=== PATIENT | male | born 1960 | race Caucasian/White ===

== ENCOUNTER 2019-05-02 16:39 | Emergency (ER) | payer MEDICAID ==
[~2019-05-02] VITALS: Ht 177.8 cm; Wt 79.4 kg
[2019-05-02 19:18] LABS: BASOPHILS # (AUTO) 0.1 X10'3 (0-0.2); EOSINOPHILS # (AUTO) 0.2 X10'3 (0-0.9); EOSINOPHILS % (AUTO) 1.8 % (0-6); HEMOGLOBIN 14.5 g/dl (14.0-17.9); LYMPHOCYTES # (AUTO) 2.5 X10'3 (1.1-4.8); LYMPHOCYTES % (AUTO) 20.5 % (21-51); MEAN CORPUSCULAR HEMOGLOBIN 31.7 PG (27.0-31.0); MEAN CORPUSCULAR HGB CONC 33.7 g/dL (33.0-36.5); MEAN CORPUSCULAR VOLUME 94.1 FL (78-98); MEAN PLATELET VOLUME 7.2 FL (7.4-10.4); MONOCYTES # (AUTO) 0.8 X10'3 (0-0.9); MONOCYTES % (AUTO) 6.5 % (2-12); NEUTROPHILS # (AUTO) 8.4 X10'3 (1.8-7.7); NEUTROPHILS % (AUTO) 70.2 % (42-75); PLATELET COUNT 293 X10'3 (140-440); RED BLOOD COUNT 4.57 X10'6 (4.70-6.10); RED CELL DISTRIBUTION WIDTH 13.1 % (11.5-14.5)
[2019-05-02 19:25] LABS: HEMOGLOBIN A1C 11.7 % (4.5-6.2)
[2019-05-02 19:30] LABS: ALANINE AMINOTRANSFERASE 31 U/L (12-78); ALBUMIN 3.2 G/DL (3.4-5.0); ALBUMIN/GLOBULIN RATIO 0.9 (1.1-1.5); ALKALINE PHOSPHATASE 134 IU/L (46-116); ANION GAP 8 (8-16); ASPARTATE AMINO TRANSFERASE 13 U/L (10-37); BILIRUBIN,TOTAL 0.3 MG/DL (0.1-1.0); BLOOD UREA NITROGEN 16 MG/DL (7-18); CALCIUM 8.2 MG/DL (8.5-10.1); CHLORIDE 101 MMOL/L (99-107); CREATININE 0.84 MG/DL (0.60-1.10); GLUCOSE 384 MG/DL (70-104); POTASSIUM 3.8 MMOL/L (3.5-5.1); SODIUM 137 MMOL/L (135-145); TOTAL CARBON DIOXIDE 27.9 MMOL/L (24-32); TOTAL PROTEIN 6.9 G/DL (6.4-8.2); eGFR > 90 ML/MIN
[2019-05-02] MEDS ORDERED: HYDR25TA4 PO (19:36)
[2019-05-02] MEDS ORDERED: METF500T PO (19:36)
[2019-05-02 19:50] VITALS: BP 127/83
== END 2019-05-02 19:52 | disposition home or self-care (01) ==
LOC: ER 16:39
DX: E11.9 Type 2 diabetes mellitus without complications (principal); R06.02 Shortness of breath; R60.0 Localized edema; F17.210 Nicotine dependence, cigarettes, uncomplicated; Z98.890 Other specified postprocedural states; Z79.899 Other long term (current) drug therapy
CPT/HCPCS: 36415; 71045; 80053; 82948; 83036; 83880; 85025; 99284

== ENCOUNTER 2019-05-28 12:53 | Inpatient (IN) | payer MEDICAID ==
[~2019-05-28] VITALS: Ht 177.8 cm; Wt 72.7 kg
[~2019-05-28 12:53] MED LIST: HYDR25TA4 PO; METF500T PO
[2019-05-28 13:40] LABS: BASOPHILS # (AUTO) 0.1 X10'3 (0-0.2)
[2019-05-28 13:45] LABS: PARTIAL THROMBOPLASTIN TIME 33 SECONDS (22-32)
[2019-05-28 13:47] LABS: ALANINE AMINOTRANSFERASE 41 U/L (12-78); ALBUMIN 3.3 G/DL (3.4-5.0); ALBUMIN/GLOBULIN RATIO 0.7 (1.1-1.5); ALKALINE PHOSPHATASE 162 IU/L (46-116); ANION GAP 14 (8-16); ASPARTATE AMINO TRANSFERASE 39 U/L (10-37); BASOPHILS % (AUTO) 0.3 % (0-1); BILIRUBIN,TOTAL 0.8 MG/DL (0.1-1.0); BLOOD UREA NITROGEN 63 MG/DL (7-18); BUN/CREATININE RATIO 24.7 (5.4-32.0); CALCIUM 8.9 MG/DL (8.5-10.1); CHLORIDE 80 MMOL/L (99-107); CREATININE 2.55 MG/DL (0.60-1.10); EOSINOPHILS # (AUTO) 0.1 X10'3 (0-0.9); EOSINOPHILS % (AUTO) 0.6 % (0-6); HEMATOCRIT 52.8 % (42.0-52.0); HEMOGLOBIN 17.7 g/dl (14.0-17.9); LYMPHOCYTES # (AUTO) 0.8 X10'3 (1.1-4.8); LYMPHOCYTES % (AUTO) 4.7 % (21-51); MEAN CORPUSCULAR HGB CONC 33.5 g/dL (33.0-36.5); MEAN CORPUSCULAR VOLUME 95.7 FL (78-98); MEAN PLATELET VOLUME 8.5 FL (7.4-10.4); MONOCYTES # (AUTO) 0.8 X10'3 (0-0.9); MONOCYTES % (AUTO) 4.7 % (2-12); NEUTROPHILS # (AUTO) 14.8 X10'3 (1.8-7.7); NEUTROPHILS % (AUTO) 89.7 % (42-75); PLATELET COUNT 186 X10'3 (140-440); POTASSIUM 5.4 MMOL/L (3.5-5.1); RED BLOOD COUNT 5.52 X10'6 (4.70-6.10); TOTAL CARBON DIOXIDE 19.8 MMOL/L (24-32); WHITE BLOOD COUNT 16.5 X10'3 (4.5-11.0); eGFR 26 ML/MIN
[2019-05-28] MEDS ORDERED: ipratropium/albuterol 3ml nebule NEB ONE (13:55)
[2019-05-28] MEDS ORDERED: normal saline 1000ML IV soln IVB ONE ×2 (13:55→18:20)
[2019-05-28 14:04] LABS: GLUCOSE 892 MG/DL (70-104); SODIUM 114 MMOL/L (135-145)
[2019-05-28 14:10] LABS: D-DIMER 3.34 MG/L FEU (0-0.50)
[2019-05-28 14:20] LABS: TOTAL CELLS COUNTED 100
[2019-05-28 14:24] LABS: PLATELET ESTIMATE NORMAL
--- NOTE | 2019-05-28 14:58 | NUR ---
Pt transported to [facility] with Tech via wheelchair.
--- NOTE | 2019-05-28 15:13 | NUR ---
Pt's girlfriend Lillie can be reached at [phone].
--- NOTE | 2019-05-28 15:55 | NUR ---
pt back from nuc med
[2019-05-28 17:06] LABS: CLARITY,URINE SLIGHTLY CLOUDY (Clear); COLOR,URINE YELLOW (Yellow); GLUCOSE, URINE >=1000 mg/dl (Neg); KETONES,URINE TRACE mg/dl (Neg); LEUKOCYTE ESTERASE ,URINE NEGATIVE (Neg); NITRITES, URINE POSITIVE (Neg); OCCULT BLOOD,URINE LARGE (Neg); PH,URINE 5.5 (4.8-8.0); PROTEIN,URINE TRACE mg/dl (Neg); UROBILINOGEN,URINE 0.2 E.U/dL (0.2-1.0)
--- NOTE | 2019-05-28 17:07 | NUR ---
PT IS ALERT BUT CONFUSED ON WHAT [place] HE [place] AND STARTING TO TALK ABOUT THINGS THAT MAKE NO SINCE
[2019-05-28 17:19] LABS: URINE AMPHETAMINE SCREEN POSITIVE (Neg); URINE BARBITUATE SCREEN NEGATIVE (Neg); URINE BENZODIAZEPINES SCREEN NEGATIVE (Neg); URINE CANNABINOID SCREEN POSITIVE (Neg); URINE COCAINE SCREEN NEGATIVE (Neg); URINE METHADONE SCREEN NEGATIVE (Neg); URINE OPIATE SCREEN POSITIVE (Neg); URINE PHENCYCLIDINE SCREEN NEGATIVE (Neg)
[2019-05-28 17:21] LABS: UA COLLECTION TYPE CLN CATCH MIDSTREAM
[2019-05-28 17:23] LABS: FINE GRANULAR CAST 0-3 /LPF (NEGATIVE); SQUAMOUS EPITHELIAL CELL,UR FEW /LPF (FEW)
[2019-05-28 17:24] LABS: AMORPHOUS URATES 1+
[2019-05-28 17:25] LABS: BACTERIA,URINE 1+ /HPF (Neg); WBC,URINE 0-4 /HPF (0-4)
[2019-05-28 18:00] LABS: ABG BASE EXCESS -11.8 mmol/L (-2.0-3.0); ABG HCO3 13.3 mmol/L (22.0-26.0); ABG OXYGEN SATURATION 96.1 % (95-98); ABG PCO2 (T) 29.3 mmHg (35.0-45.0); ABG PH (T) 7.274 (7.350-7.450); ABG PO2 (T) 78.9 mmHg (83-108); ALLEN'S TEST POSITIVE; FCOHb 1.2 % (0.5-1.5); FMetHb 0.3 % (0.3-1.12); FO2Hb 94.7 % (94-100); TOTAL HEMOGLOBIN 17.1 G/dl (14.0-17.9)
--- NOTE | 2019-05-28 18:41 | NUR ---
pt HR 141. MD notified. New order for ativan 1 mg IV prn for agitation.
[2019-05-28] MEDS ORDERED: LORazepam 2 mg/ml vial IV ONE (18:45)
--- NOTE | 2019-05-28 19:28 | NUR ---
Powers catheter placed in patient as ordered; patent and draining clear yellow urine. Pt somewhat confused but cooperative.
[2019-05-28] MEDS ORDERED: sodium bicarbonate (8.4%) inj. 50 MEQ in sodium chloride 0.45% 950 ML IV SCH (19:42)
[2019-05-28] MEDS ORDERED: MESSAGE TO PHARMACY PO ONE (19:45)
[2019-05-28] MEDS ORDERED: diphenhydrAMINE 25mg capsule PO PRN (19:45)
[2019-05-28] MEDS ORDERED: diphenhydrAMINE 50 mg/ml inj IV PRN (19:45)
[2019-05-28] MEDS ORDERED: HYDROcodone/acetaminophen 5mg/325mg tablet PO PRN (19:45)
[2019-05-28] MEDS ORDERED: bisacodyl 10mg suppository rectal RC PRN (19:45)
[2019-05-28] MEDS ORDERED: dextrose ORAL solution 15 GM/59 ML bottle PO PRN ×2 (19:45)
[2019-05-28] MEDS ORDERED: magnesium Cl slow-release 64mg tablet PO PRN (19:45)
[2019-05-28] MEDS ORDERED: HYDROcodone/acetaminophen 10/325mg tab PO PRN (19:45)
[2019-05-28] MEDS ORDERED: potassium Cl 20 mEq SR tablet PO PRN ×4 (19:45→21:30)
[2019-05-28] MEDS ORDERED: glucagon, human recombinant 1mg kit SUBCUT PRN (19:45)
[2019-05-28] MEDS ORDERED: ondansetron/PF 4mg/2ml inj IV PRN (19:45)
[2019-05-28] MEDS ORDERED: insulin Lispro (HumaLOG) vial - multi-dose SQ SCH (19:45)
[2019-05-28] MEDS ORDERED: mag hydrox/Alum hydrox/simeth 30ml oral suspension PO PRN (19:45)
[2019-05-28] MEDS ORDERED: magnesium 2GM in 50ml NS 50 ML IV PRN (19:45)
[2019-05-28] MEDS ORDERED: acetaminophen 325mg tablet PO PRN ×2 (19:45)
[2019-05-28] MEDS ORDERED: magnesium 4gm in 100ml NS 100 ML IV PRN (19:45)
[2019-05-28] MEDS ORDERED: dextrose 50%-water 50ml dispensing syringe IV PRN ×2 (19:45)
[2019-05-28] MEDS ORDERED: CefTRIAXone/D5W-Rocephin 1gm 50 ML IV SCH (19:45)
[2019-05-28] MEDS ORDERED: magnesium hydroxide 30ml (MOM) UD suspension PO PRN (19:45)
[2019-05-28] MEDS ORDERED: potassium CL 10mEq/100ml bag 100 ML IV PRN ×4 (19:45→21:30)
[2019-05-28] MEDS ORDERED: metoclopramide 5 mg/ml inj IV PRN (19:45)
[2019-05-28] MEDS: K and/or MAG REPLACEMENT MC SCH (20:00)
[2019-05-28] MEDS ORDERED: normal saline 1000ml 1,000 ML IV SCH ×2 (20:10→21:26)
[2019-05-28] MEDS ORDERED: insulin regular, human 10 units/0.1 ml syringe SQ ONE (20:15)
[2019-05-28 20:39] LABS: PHOSPHORUS 4.6 MG/DL (2.3-4.5)
[2019-05-28] MEDS ORDERED: tamsulosin 0.4mg capsule PO SCH (21:00)
[2019-05-28] MEDS ORDERED: temazepam 15mg capsule PO PRN (21:00)
[2019-05-28] MEDS ORDERED: insulin glargine (Lantus) pen - multi-dose SQ SCH (21:00)
--- NOTE | 2019-05-28 21:00 | NUR ---
Patient arrived to the PCU unit at this time. He is non-verbal but is mumbling and he is unable to follow commands. Respiratory rate is about 40 with shallow breathing and HR in the 140's. He is afebrile and BP is 135/100. He is sating WNL in room air. Blood sugar checked on glucometer and reading still over 600. Dr. Barahona notified and got DKA protocol ordered. Patient has not received any insulin so far despite readings in the ER all over 600. Powers catheter in place with good output of clear yellow drainage. Will get insulin started and blood sugar checks Q1H.
[2019-05-28 21:05] VITALS: BP 135/100
--- NOTE | 2019-05-28 21:20 | NUR ---
Clarified with Dr. Barahona about fluid orders with the DKA protocol because the protocol orders to start NS at 250mls/hour with the insulin drip. However patient already has elevated PBNP of 6760 and also his Na was 114 and we don't want to raise it too fast. Dr. Barahona said to put the NS at 50mls/hour instead of the 250mls/hour.
[2019-05-28] MEDS ORDERED: sodium bicarbonate (8.4%) inj. 50 MEQ in dextrose 5% water 500ml 250 ML IV PRN (21:26)
[2019-05-28] MEDS: normal saline 1000ml 1,000 ML IV SCH ×2 (21:26→21:56)
[2019-05-28] MEDS ORDERED: potassium CL 20mEq in D5-1/2NS 1,000 ML IV PRN (21:26)
[2019-05-28] MEDS ORDERED: Insulin Reg/NS 100units/100mL 100 ML IV SCH (21:26)
[2019-05-28] MEDS ORDERED: sodium bicarbonate (8.4%) inj. 100 MEQ in dextrose 5% water 500ml 500 ML IV PRN (21:26)
[2019-05-28] MEDS ORDERED: Neutra Phos packet PO PRN (21:30)
[2019-05-28] MEDS ORDERED: insulin regular, human vial - multi-dose IV PRN (21:30)
[2019-05-28] MEDS ORDERED: sodium phosphate inj. 30 MMOL in dextrose 5%-water 250 ML IV PRN (21:30)
[2019-05-28] MEDS ORDERED: sodium phosphate inj. 15 MMOL in dextrose 5%-water 150 ML IV PRN (21:30)
--- NOTE | 2019-05-28 21:45 | NUR ---
Dr. Barahona notified that CO2 has dropped from 19.8 to 13.8 and Anion gap has increased from 14 to 20. Also Na went up from 114 to 125 which is faster than we should be raising Na levels so he ordered to stop the NS and only keep insulin going then repeat BMP in 4 hours.
[2019-05-28 22:09] LABS: ALBUMIN 2.8 G/DL (3.4-5.0); ANION GAP 20 (8-16); BLOOD UREA NITROGEN 61 MG/DL (7-18); CALCIUM 9.6 MG/DL (8.5-10.1); CHLORIDE 91 MMOL/L (99-107); CREATININE 2.18 MG/DL (0.60-1.10); MAGNESIUM 2.6 MG/DL (1.5-2.4); PHOSPHORUS 3.8 MG/DL (2.3-4.5); POTASSIUM 4.8 MMOL/L (3.5-5.1); SODIUM 125 MMOL/L (135-145); eGFR 31 ML/MIN
[2019-05-28 22:16] LABS: GLUCOSE 679 MG/DL (70-104); TOTAL CARBON DIOXIDE 13.8 MMOL/L (24-32)
--- NOTE | 2019-05-28 22:20 | NUR ---
PAGER ID: [phone] MESSAGE: Patient Alex Li Rm 3014B Critical labs BG 679 and CO2 13.8. Also Na went from 114 to 125. Rosi FRIAS ext. [phone]
--- NOTE | 2019-05-28 22:33 | NUR ---
PAGER ID: [phone] MESSAGE: Patient Alex Li RM [id number] Blood cultures resulted with gram positive cocci in clusters. He is on Rocephin. Thank you. Rosi FRIAS ext. [phone]
--- NOTE | 2019-05-28 22:35 | NUR ---
Dr. Barahona notified that patient has positive blood cultures with gram positive cocci in clusters. He ordered a set of repeat blood cultures and another Lactic and started patient on IV Vanco after blood cultures are drawn. Also notified MD that patient heart rate remains in the 140's in sinus tachycardia. He ordered Metoprolol IVP Q15 minutes for HR greater than 110.
--- NOTE | 2019-05-28 22:40 | NUR ---
Patient in room PCU 3014. I have received report from Mercedes FRIAS and awaiting arrival of patient to the PCU unit.
[2019-05-28 22:59] VITALS: BP 158/102
[2019-05-28] MEDS: heparin, porcine 5000 units/ml vial SQ SCH (22:59)
[2019-05-28] MEDS: metoprolol tartrate 1mg/ml inj IV PRN ×2 (22:59→23:46)
[2019-05-28 23:46] VITALS: BP 115/85
[2019-05-28] MEDS ORDERED: vancomycin/NS 1 GM ADD-VANTAGE 250 ML IV SCH (23:55)
[2019-05-28] MEDS ORDERED: VANCOmycin 1250MG/NS 250ml Bag 250 ML IV SCH ×2 (23:55)
[2019-05-29] VITALS (7 sets, daily range): BP systolic 78–113; BP diastolic 54–78
[2019-05-29] MEDS ORDERED: sodium chloride 0.45% 1,000 ML IV SCH ×2 (00:35→04:35)
--- NOTE | 2019-05-29 00:43 | NUR ---
Spoke with Ric Plascencia regarding patients rapid increase in Na and he has consulted with Dr. Leary. They have ordered to start patient on 1/2 NS at 75mls/hour.
[2019-05-29] MEDS: metoprolol tartrate 1mg/ml inj IV PRN (01:17)
--- NOTE | 2019-05-29 01:24 | NUR ---
PAGER ID: [phone] MESSAGE: Patient Fidel Li RM [id number] Critical Lactic Acid of 5.2. Rosi FRIAS ext. [phone]
--- NOTE | 2019-05-29 01:30 | NUR ---
Dr. Barahona notified that patient's heart rate remains elevated, currently in the 130's. He has already received the Metoprolol IVP x3 doses which has not really helped but blood pressure is lowering so no more doses will be given at this time. MD adam.
[2019-05-29 02:29] LABS: ALANINE AMINOTRANSFERASE 33 U/L (12-78); ALBUMIN 2.4 G/DL (3.4-5.0); ALBUMIN/GLOBULIN RATIO 0.5 (1.1-1.5); ALKALINE PHOSPHATASE 123 IU/L (46-116); ANION GAP 15 (8-16); ASPARTATE AMINO TRANSFERASE 43 U/L (10-37); BILIRUBIN,TOTAL 0.5 MG/DL (0.1-1.0); BLOOD UREA NITROGEN 58 MG/DL (7-18); BUN/CREATININE RATIO 25.2 (5.4-32.0); CALCIUM 9.5 MG/DL (8.5-10.1); CHLORIDE 99 MMOL/L (99-107); GLUCOSE 390 MG/DL (70-104); POTASSIUM 4.1 MMOL/L (3.5-5.1); SODIUM 132 MMOL/L (135-145); TOTAL CARBON DIOXIDE 17.7 MMOL/L (24-32); TOTAL PROTEIN 6.8 G/DL (6.4-8.2); eGFR 29 ML/MIN
[2019-05-29 02:36] LABS: BASOPHILS % (AUTO) 0.1 % (0-1); EOSINOPHILS % (AUTO) 0.3 % (0-6); HEMATOCRIT 49.8 % (42.0-52.0); LYMPHOCYTES # (AUTO) 0.7 X10'3 (1.1-4.8); LYMPHOCYTES % (AUTO) 5.1 % (21-51); MEAN CORPUSCULAR HEMOGLOBIN 31.1 PG (27.0-31.0); MEAN CORPUSCULAR HGB CONC 34.1 g/dL (33.0-36.5); MEAN PLATELET VOLUME 8.9 FL (7.4-10.4); MONOCYTES % (AUTO) 7.5 % (2-12); NEUTROPHILS # (AUTO) 11.5 X10'3 (1.8-7.7); PLATELET COUNT 162 X10'3 (140-440); RED BLOOD COUNT 5.47 X10'6 (4.70-6.10); RED CELL DISTRIBUTION WIDTH 13.2 % (11.5-14.5); WHITE BLOOD COUNT 13.2 X10'3 (4.5-11.0)
--- NOTE | 2019-05-29 02:36 | NUR ---
PAGER ID: [phone] MESSAGE: Patient Alex Li Rm [id number] Repeat lactic is 5.8. Also aneorobic blood cultures positive for gram positive cocci in clusters as well. Rosi FRIAS ext. [phone]
[2019-05-29 02:39] LABS: CHOL/HDL RATIO 11.1 (0.00-4.99); CHOLESTEROL 100 MG/DL (0-200); HDL CHOLESTEROL 9 MG/DL (35-60); LDL CHOLESTEROL 53 MG/DL (50-100); MAGNESIUM 2.4 MG/DL (1.5-2.4); PHOSPHORUS 1.7 MG/DL (2.3-4.5); TRIGLYCERIDES 115 MG/DL (20-135)
--- NOTE | 2019-05-29 02:45 | NUR ---
Notified Ric Plascencia that NA went from 125 to 132 over the last four hours on the 04/27 NS and he said to stop the fluids at this time.
--- NOTE | 2019-05-29 02:51 | NUR ---
Dr. Barahona notified about patient's Lactic going 5.8. Cannot give more fluids at this time due to patient's PBNP and Na levels increasing. Patient has already received Rocephin and Vanco so will repeat Lactic in four hours with next BMP. Also notified that Na went from 125 to 132 since the last BMP.
--- NOTE | 2019-05-29 04:08 | NUR ---
PAGER ID: [phone] MESSAGE: Patient Alex Li RM [id number] Patient now has temperature of 102 axillary. Can I get rectal Tylenol? Hes unable to swallow. BP is 90/67 and heart rate is up to the 150'S. Rosi FRIAS ext. [phone]
--- NOTE | 2019-05-29 04:32 | NUR ---
Spoke with Ric Plascencia regarding patient's heart rate in the 150's and him being febrile. He says based on this we will have to give him fluids and to restart the 1/2 NS back at 75mls. Also ordered Tylenol 1gram IV.
--- NOTE | 2019-05-29 04:40 | NUR ---
Order obtained from Temo for IV Tylenol 1gram for temp of 102.0 axillary.
--- NOTE | 2019-05-29 04:58 | NUR ---
PAGER ID: [phone] MESSAGE: Patient Te Li Rm [id number] Do you want a repeat ABG? He has consistently been tachypneic. Thank you. Rosi FRIAS ext. [phone]
--- NOTE | 2019-05-29 05:00 | NUR ---
Rapid response called for patient decline in blood pressure and decline in respiratory status with rapid, very shallow breathing.
--- NOTE | 2019-05-29 05:00 | NUR ---
Fluids being changed from 1/2NS to D5 1/2NS with 20mEq K added for blood sugar less than 250 per MD order.
[2019-05-29] MEDS ORDERED: Potassium Cl inj 20 MEQ in dextrose 5%-water 990 ML IV SCH ×2 (05:05→08:35)
[2019-05-29 05:15] LABS: ABG BASE EXCESS -4.2 mmol/L (-2.0-3.0); ABG HCO3 17.2 mmol/L (22.0-26.0); ABG OXYGEN SATURATION 93.3 % (95-98); ABG PCO2 (T) 27.4 mmHg (35.0-45.0); ABG PH (T) 7.425 (7.350-7.450); ABG PO2 (T) 66.8 mmHg (83-108); FCOHb 0.1 % (0.5-1.5); FMetHb 0.2 % (0.3-1.12); PATIENT TEMPERATURE 39.2; TOTAL HEMOGLOBIN 18.1 G/dl (14.0-17.9)
[2019-05-29] MEDS ORDERED: D5-1/2NS w/20 mEq potassium per 1000ml IV ONE (05:25)
[2019-05-29] MEDS ORDERED: albumin (Human) 5% 250ml 250 ML IV ONE ×2 (05:30)
--- NOTE | 2019-05-29 05:30 | NUR ---
IV Tylenol was given, 500mls bolus of 1/2NS, 2 bottles of 250mls Albumin, ABG and stat labs drawn, patient placed on 3 liters NC.
[2019-05-29] MEDS ORDERED: potassium CL 20mEq in D5-1/2NS 1,000 ML IV ONE (05:35)
[2019-05-29 05:47] LABS: ALBUMIN 2.4 G/DL (3.4-5.0); ANION GAP 14 (8-16); BLOOD UREA NITROGEN 62 MG/DL (7-18); BUN/CREATININE RATIO 27.2 (5.4-32.0); CALCIUM 9.7 MG/DL (8.5-10.1); CHLORIDE 101 MMOL/L (99-107); CREATININE 2.28 MG/DL (0.60-1.10); GLUCOSE 176 MG/DL (70-104); PHOSPHORUS 1.3 MG/DL (2.3-4.5); SODIUM 135 MMOL/L (135-145); eGFR 29 ML/MIN
[2019-05-29] MEDS ORDERED: sodium bicarbonate (8.4%) inj. 100 MEQ in dextrose 5%-water 1,000 ML IV PRN (05:57)
--- NOTE | 2019-05-29 06:28 | NUR ---
Patient in room PCU 3014B. I have received report from Rosi FRIAS and had the opportunity to ask questions and assume patient care.
--- NOTE | 2019-05-29 06:56 | NUR ---
Problems reprioritized. Patient report given, questions answered & plan of care reviewed with Mikaela FRIAS.
[2019-05-29] MEDS ORDERED: Insulin Reg/NS 100units/100mL 100 ML IV SCH ×2 (07:15→08:35)
[2019-05-29 07:35] LABS: ALBUMIN 2.8 G/DL (3.4-5.0); ANION GAP 14 (8-16); BLOOD UREA NITROGEN 62 MG/DL (7-18); BUN/CREATININE RATIO 27.2 (5.4-32.0); CALCIUM 9.5 MG/DL (8.5-10.1); CHLORIDE 103 MMOL/L (99-107); CREATININE 2.28 MG/DL (0.60-1.10); GLUCOSE 116 MG/DL (70-104); POTASSIUM 3.8 MMOL/L (3.5-5.1); SODIUM 138 MMOL/L (135-145); TOTAL CARBON DIOXIDE 20.9 MMOL/L (24-32); eGFR 29 ML/MIN
[2019-05-29] MEDS ORDERED: acetaminophen 1,000mg/100ml IV 100 ML IV ONE (08:00)
[2019-05-29] MEDS ORDERED: K and/or MAG REPLACEMENT MC SCH (08:00)
[2019-05-29] MEDS: K and/or MAG REPLACEMENT MC SCH (08:00)
[2019-05-29] MEDS: heparin, porcine 5000 units/ml vial SQ SCH (08:11)
[2019-05-29] MEDS: piperacillin/tazo 3.375gm/50ml 50 ML IV SCH ×2 (08:46→09:46)
[2019-05-29] MEDS ORDERED: DEXTROSE 5% IV SCH (09:05)
[2019-05-29] MEDS ORDERED: 1/4 NORMAL SALINE IV SCH (09:05)
[2019-05-29] MEDS ORDERED: POTASSIUM CL IV SCH (09:05)
--- NOTE | 2019-05-29 10:09 | NUR ---
paged Dr Marte to inform of positive blood cultures PAGER ID: [phone] MESSAGE: Mikaela khanna [phone]. RE Alexandria Li [id number]. Positive blood culture: L hand, gram positive cocci clusters, drawn 05/28/2019.
[2019-05-29] MEDS: LORazepam 2 mg/ml vial IV PRN ×2 (11:28→16:15)
--- NOTE | 2019-05-29 12:09 | NUR ---
Paged PAGER ID: [phone] MESSAGE: Mikaela khanna [phone]. RE Alexandria Li [id number]. THOMAS that venous report faxed over, stating: "significant LLE inflow disease noted and no stenoses or occlusions detected by image bilaterally."
--- NOTE | 2019-05-29 12:15 | NUR ---
Rony 12; no edema/wounds. Pt admit GLU 892 now down to WNL, DX severe sepsis w/ hypotension per MD, and positive for meth, opiates, and cannabinoids. Pt currently obtunded and NPO w/ expressive aphasia; would benefit from HIM ASSISTANT BSS prior to PO diet advancement. A1C 11.7; will monitor for diet advancement and appropriateness for DM ed this admit given new DX. Rec: 1. advance diet per HIM ASSISTANT recs to carb controlled as medically indicated 2. monitor for ONS needs as diet advances 3. DM ed once more appropriate prior to d/c given DKA and new DM DX 4. bowel care as needed 5. wts per rx Addendum: 05/29/19 at [address] Amended: Links added.
[2019-05-29 12:20] LABS: ALBUMIN 2.6 G/DL (3.4-5.0); ANION GAP 11 (8-16); BLOOD UREA NITROGEN 65 MG/DL (7-18); BUN/CREATININE RATIO 29.4 (5.4-32.0); CALCIUM 8.8 MG/DL (8.5-10.1); CHLORIDE 102 MMOL/L (99-107); CREATININE 2.21 MG/DL (0.60-1.10); GLUCOSE 145 MG/DL (70-104); PHOSPHORUS 4.2 MG/DL (2.3-4.5); POTASSIUM 4.2 MMOL/L (3.5-5.1); SODIUM 135 MMOL/L (135-145); TOTAL CARBON DIOXIDE 22.4 MMOL/L (24-32); eGFR 31 ML/MIN
--- NOTE | 2019-05-29 13:19 | NUR ---
Shoshana ROGERS PAGER ID: [phone] MESSAGE: Mikaela MANNING. Alexandria Prakash 3014B. Heart rate is now in 150's. Please advise
[2019-05-29] MEDS ORDERED: digoxin 250mcg/ml 2ml ampule IV ONE ×2 (13:25→13:30)
[2019-05-29] MEDS ORDERED: morphine 10mg/0.5ml (conc. morphine) oral syringe PO PRN (13:50)
[2019-05-29] MEDS: morphine 10mg/ml inj. IV PRN ×2 (14:25→15:33)
--- NOTE | 2019-05-29 16:48 | NUR ---
Shoshana ROGERS PAGER ID: [phone] MESSAGE: Mikaela MANNING. Alexandria Prakash 2015Q. FYI lab reported positive blood culture from right hand, gram positive cocci clusters
--- NOTE | 2019-05-29 18:17 | NUR ---
Patient in room PCU 3014. I have received report from Mikaela FRIAS and had the opportunity to ask questions and assume patient care.
--- NOTE | 2019-05-29 18:19 | NUR ---
Problems reprioritized. Patient report given, questions answered & plan of care reviewed with Rosi FRIAS.
--- NOTE | 2019-05-29 18:59 | NUR ---
PAGER ID: [phone] MESSAGE: Patient Alex Li RM 3014B Patient at 1849 Rosi FRIAS ext. [phone]
--- NOTE | 2019-05-29 19:10 | NUR ---
promotional table spacer PAGER ID: [phone] MESSAGE: Patient Alex Li RM [id number] Patient at 1849. Rosi FRIAS ext. [phone]
--- NOTE | 2019-05-29 19:46 | NUR ---
Patient at 1849 with girlfriend Lillie and other family friends present at bedside. Patient with no signs of distress. Asystole strip placed in chart. Family has chosen [facility] and they have been contacted to shrimp picker body. Dr. Marte and Dr. Barahona were both paged to notify them of patient expiration. The donor network was notified and patient will not be a candidate for any tissues donation. Reference number is [id number].
--- NOTE | 2019-05-29 20:31 | NUR ---
patient refused 1800 vitals
--- NOTE | 2019-05-29 20:48 | NUR ---
Patient picked up by Makayla from [place] at this time and is excorted out with hospital security staff. Patient had no belongings. Family is aware where patient is going.
[2019-05-30] MEDS ORDERED: vancomycin/NS 1 GM ADD-VANTAGE 250 ML IV SCH
[2019-05-31] MEDS ORDERED: digoxin 250mcg/ml 2ml ampule IV SCH (08:00)
[2019-05-31] MEDS ORDERED: VANCOMYCIN LEVEL IV ONE (23:30)
== END 2019-05-29 20:50 | disposition expired | DRG 812 ==
LOC: ER 12:54 → ED HOLD 20:08 → PCU 3S 21:00
PROVIDERS: ADMIT Family Medicine; ATTEND Family Medicine
PROC: CB121ZZ Planar Nuclear Medicine Imaging of Lungs and Bronchi using Technetium 99m (Tc-99m) (ICD-10-PCS; principal; 2019-05-28)
DX: T43.621A Poisoning by amphetamines, accidental (unintentional), initial encounter (principal); A41.89 Other specified sepsis; R65.20 Severe sepsis without septic shock; G92 Toxic encephalopathy; A41.9 Sepsis, unspecified organism; N17.9 Acute kidney failure, unspecified; E11.10 Type 2 diabetes mellitus with ketoacidosis without coma; I95.9 Hypotension, unspecified; E87.2 Acidosis; E87.1 Hypo-osmolality and hyponatremia; E11.65 Type 2 diabetes mellitus with hyperglycemia; F17.210 Nicotine dependence, cigarettes, uncomplicated; E87.5 Hyperkalemia; F12.90 Cannabis use, unspecified, uncomplicated; F15.10 Other stimulant abuse, uncomplicated; I10 Essential (primary) hypertension; I70.8 Atherosclerosis of other arteries; Y92.89 Other specified places as the place of occurrence of the external cause; Z79.899 Other long term (current) drug therapy; Z51.5 Encounter for palliative care; Z66 Do not resuscitate
CPT/HCPCS: 36415; 36600; 70450; 71045; 74176; 76937; 78582; 80048; 80053; 80061; 80305; 81001; 82009; 82140; 82803; 82948; 83605; 83735; 83880; 84100; 84145; 84443; 84484; 85018; 85025; 85379; 85610; 85730; 87040; 87077; 87081; 87088; 87186; 87502; 87503; 93005; 93306; 93922; 93925; 93971; 94640; 94760; 99285; A9539; A9540; G0378; J0131; J0696; J1160; J1644; J1815; J2060; J2270; J2543; J3370; J3480; J3490; J7030; J7060; P9045